=== PATIENT | female | born 1975 | race Caucasian/White ===

== ENCOUNTER 2023-09-10 12:18 | Day surgery (SDC) | payer BC, OTHER ==
[2023-09-06 13:50] LABS: BASOPHILS # (AUTO) 0.1 X10'3 (0-0.2); BASOPHILS % (AUTO) 0.7 % (0-1); EOSINOPHILS # (AUTO) 0.1 X10'3 (0-0.9); EOSINOPHILS % (AUTO) 1.5 % (0-6); HEMATOCRIT 40.3 % (35.0-45.0); HEMOGLOBIN 13.6 g/dl (12.0-16.0); LYMPHOCYTES # (AUTO) 2.6 X10'3 (1.1-4.8); LYMPHOCYTES % (AUTO) 33.4 % (21-51); MEAN CORPUSCULAR HEMOGLOBIN 31.9 PG (27.0-31.0); MEAN CORPUSCULAR HGB CONC 33.8 g/dL (33.0-36.5); MEAN CORPUSCULAR VOLUME 94.4 FL (78-98); MEAN PLATELET VOLUME 8.7 FL (7.4-10.4); MONOCYTES # (AUTO) 0.8 X10'3 (0-0.9); MONOCYTES % (AUTO) 9.9 % (2-12); NEUTROPHILS # (AUTO) 4.2 X10'3 (1.8-7.7); NEUTROPHILS % (AUTO) 54.5 % (42-75); PLATELET COUNT 253 X10'3 (140-440); RED BLOOD COUNT 4.26 X10'6 (4.20-5.60); RED CELL DISTRIBUTION WIDTH 13.1 % (11.5-14.5); WHITE BLOOD COUNT 7.7 X10'3 (4.5-11.0)
[2023-09-06 14:02] LABS: APTT 24 SECONDS (22-32); PROTHROMBIN TIME 10.7 SECONDS (9.0-12.0)
[2023-09-06 14:06] LABS: ANION GAP 7 (8-16); BLOOD UREA NITROGEN 12 MG/DL (7-18); BUN/CREATININE RATIO 14.8 (10.0-20.0); CALCIUM 8.8 MG/DL (8.5-10.1); CHLORIDE 104 MMOL/L (99-107); CHOL/HDL RATIO 3.3 (0.00-4.99); CHOLESTEROL 181 MG/DL (0-200); CREATININE 0.81 MG/DL (0.40-0.90); GLUCOSE 80 MG/DL (70-104); HDL CHOLESTEROL 55 MG/DL (35-60); LDL CHOLESTEROL 109 MG/DL (50-100); POTASSIUM 4.1 MMOL/L (3.5-5.1); SODIUM 139 MMOL/L (135-145); TOTAL CARBON DIOXIDE 27.9 MMOL/L (24-32); TRIGLYCERIDES 90 MG/DL (20-135); eGFR 75 ML/MIN
[2023-09-10] VITALS (9 sets, daily range): BP systolic 109–131; BP diastolic 68–93; PULSE 64–75; RESP 9–21; TEMP 98.1; O2SAT 96–98
[~2023-09-10] VITALS: Ht 170.2 cm; Wt 94.8 kg
[2023-09-10] MEDS: diphenhydrAMINE 25mg capsule PO PRN (13:35)
[2023-09-10] MEDS: LORazepam 0.5 MG tablet PO PRN (13:35)
[2023-09-10] MEDS: normal saline 1,000 ML IV SCH (13:36)
[2023-09-10] MEDS ORDERED: fentaNYL/PF 50MCG/1 ML 2ML syringe ONE (14:55)
[2023-09-10] MEDS ORDERED: iohexol 350 MG/ML 50ML vial IV ONE (14:55)
[2023-09-10] MEDS ORDERED: LIDOcaine 1% 30ml preserv. free vial ONE (14:55)
[2023-09-10] MEDS ORDERED: midazolam 1 mg/ML 2ml injection ONE ×2 (14:55→15:49)
[2023-09-10] MEDS ORDERED: iohexol 350MG/ML 100ml bottle IV ONE (14:56)
[2023-09-10] MEDS ORDERED: CHOL10008 PO (15:22)
[2023-09-10] MEDS ORDERED: PROG200C37 PO (15:22)
[2023-09-10] MEDS ORDERED: VITA-268 PO (15:22)
[2023-09-10] MEDS ORDERED: PROG100C11 PO (15:22)
[2023-09-10] MEDS ORDERED: verapamil 2.5 mg/ml inj IV ONE (15:28)
[2023-09-10] MEDS ORDERED: heparin 1,000unit/ml 10ml vial 10 ML ONE (15:28)
[2023-09-10] MEDS ORDERED: nitroGLYCERIN 500mcg/5mL D5W 5 ML IV ONE (15:28)
[2023-09-10] MEDS ORDERED: proCHLORperazine 10 MG/2 ml inj IV PRN (16:15)
[2023-09-10] MEDS ORDERED: ondansetron/PF 4mg/2ml inj IV PRN (16:15)
[2023-09-10] MEDS ORDERED: HYDROcodone/acetaminophen 5mg/325mg tablet PO PRN (16:15)
[2023-09-10] MEDS ORDERED: OXAZEpam 15mg capsule PO PRN (16:15)
[2023-09-10] MEDS ORDERED: HYDROcodone/acetaminophen 10/325mg tab PO PRN (16:15)
== END 2023-09-10 18:00 | disposition home or self-care (01) ==
LOC: SSTAY O 12:18
PROVIDERS: ATTEND Student in an Organized Health Care Education/Training Program
DX: I71.20 Thoracic aortic aneurysm, without rupture, unspecified (principal); E78.00 Pure hypercholesterolemia, unspecified; Z79.899 Other long term (current) drug therapy
CPT/HCPCS: 36415; 80048; 80061; 85025; 85610; 85730; 93005; 93458; 93567; 99152; J1644; J2250; J3010; J3490; J7030; Q0163; Q9967; 99153; A6258; C1725; C1894

== ENCOUNTER 2023-11-07 12:00 | Inpatient (IN) | payer BC, OTHER ==
[2023-11-01 13:55] LABS: BILIRUBIN,URINE NEGATIVE (Neg); CLARITY,URINE SLIGHTLY CLOUDY (Clear); COLOR,URINE YELLOW (Yellow); GLUCOSE, URINE NEGATIVE (Neg); KETONES,URINE NEGATIVE (Neg); LEUKOCYTE ESTERASE ,URINE NEGATIVE (Neg); NITRITES, URINE NEGATIVE (Neg); OCCULT BLOOD,URINE NEGATIVE (Neg); PROTEIN,URINE NEGATIVE (Neg); UROBILINOGEN,URINE 0.2 E.U/dL (0.2-1.0)
[2023-11-01 13:59] LABS: BASOPHILS % (AUTO) 0.7 % (0-1); EOSINOPHILS # (AUTO) 0.1 X10'3 (0-0.9); EOSINOPHILS % (AUTO) 2.2 % (0-6); LYMPHOCYTES # (AUTO) 2.2 X10'3 (1.1-4.8); LYMPHOCYTES % (AUTO) 32.5 % (21-51); MEAN CORPUSCULAR HEMOGLOBIN 32.3 PG (27.0-31.0); MEAN CORPUSCULAR HGB CONC 34.2 g/dL (33.0-36.5); MEAN CORPUSCULAR VOLUME 94.4 FL (78-98); MEAN PLATELET VOLUME 8.1 FL (7.4-10.4); MONOCYTES # (AUTO) 0.6 X10'3 (0-0.9); MONOCYTES % (AUTO) 8.7 % (2-12); NEUTROPHILS # (AUTO) 3.7 X10'3 (1.8-7.7); NEUTROPHILS % (AUTO) 55.9 % (42-75); PRE OP HEMATOCRIT 40.6 % (35.0-45.0); PRE OP HEMOGLOBIN 13.9 g/dL (12.0-16.0); PRE OP PLATELET COUNT 299 X10'3 (140-440); PRE OP WHITE BLOOD COUNT 6.6 10'3 (4.8-10.8); RED CELL DISTRIBUTION WIDTH 13.2 % (11.5-14.5)
[2023-11-01 14:02] LABS: HEMOGLOBIN A1C 5.1 % (4.5-6.2)
[2023-11-01 14:04] LABS: PRE OP PROTIME 10.6 SECONDS (9.0-12.0)
[2023-11-01 14:05] LABS: ALBUMIN/GLOBULIN RATIO 1.3 (1.1-1.5); ALKALINE PHOSPHATASE 49 IU/L (46-116); BLOOD UREA NITROGEN 15 MG/DL (7-18); BUN/CREATININE RATIO 18.5 (10.0-20.0); CHLORIDE 104 MMOL/L (99-107); CREATININE 0.81 MG/DL (0.40-0.90); PRE OP ALT 23 U/L (30-65); PRE OP ANION GAP 8 (8-16); PRE OP AST 26 U/L (10-37); PRE OP BILIRUB, TOTAL 0.4 MG/DL (0.0-1.0); PRE OP GLUCOSE 113 MG/DL (70-104); PRE OP SODIUM 140 MMOL/L (135-145); TOTAL CARBON DIOXIDE 28.2 MMOL/L (24-32); TOTAL PROTEIN 7.1 G/DL (6.4-8.2); eGFR 75 ML/MIN
[2023-11-01 14:13] LABS: PRE OP POTASSIUM 3.9 MMOL/L (3.4-5.1)
[2023-11-01 15:04] LABS: UA COLLECTION TYPE CLN CATCH MIDSTREAM
[2023-11-01 15:06] LABS: BACTERIA,URINE FEW /HPF (Neg); RBC,URINE 0-2 /HPF (0-2); SQUAMOUS EPITHELIAL CELL,UR FEW /LPF (FEW); WBC,URINE 0-4 /HPF (0-4)
[2023-11-04 09:10] LABS: ABG BASE EXCESS -2.5 mmol/L (-2.0-2.0); ABG OXYGEN SATURATION 96.4 % (92-98.5); ABG PCO2 (T) 29.1 mmHg (32.0-45.0); ABG PH (T) 7.456 (7.350-7.450); ALLEN'S TEST POSITIVE; FCOHb 0.3 % (0.5-1.5); FHHb 3.6 % (0.0-5.0); FMetHb 0.2 % (0.0-1.5); FO2Hb 95.9 % (94-97); MODE ROOM AIR; TOTAL HEMOGLOBIN 14.3 G/dl (12.0-16.0)
[~2023-11-07] VITALS: Ht 170.2 cm; Wt 104.7 kg
[~2023-11-07 12:00] MED LIST: BERBERINE PO; PROG100C11 PO; THYROID SUPPORT PO; VITA-268 PO; amiodarone 50MG/ML inj IV ONE
[2023-11-08] MEDS ORDERED: VITAMIN D PO (13:26)
[2023-11-08] MEDS ORDERED: [UNRECOGNIZED DRUG - OTHER] PO (13:26)
[2023-11-11] VITALS (22 sets, daily range): BP systolic 105–156; BP diastolic 54–95; PULSE 72–95; RESP 14–21; TEMP 98.8; O2SAT 79–100
[2023-11-11] MEDS ORDERED: dextrose 50%-water 50ml dispensing syringe IV PRN ×2 (05:30→12:20)
[2023-11-11] MEDS ORDERED: Insulin Reg/NS 100units/100mL 100 ML IV SCH ×2 (05:30→12:20)
[2023-11-11] MEDS ORDERED: insulin glargine (Lantus) pen - multi-dose SQ PRN ×2 (05:30→12:20)
[2023-11-11] MEDS: cefazolin 2gm/D5W 100mL 100 ML IV ONE (05:30)
[2023-11-11] MEDS: famotidine 20mg tablet PO ONE (06:37)
[2023-11-11] MEDS: mupirocin 2% nasal ointment 1gm UD NS ONE (06:37)
[2023-11-11] MEDS: metoprolol tartrate 12.5mg (1/2 tablet) PO ONE (06:38)
[2023-11-11] MEDS: vancomycin 1,500 MG in NS 300ml IV soln IV ONE (06:38)
[2023-11-11] MEDS: ringers solution, lacted 1,000 ML IV SCH (06:39)
[2023-11-11] MEDS ORDERED: MIDAZolam 1 MG/ML 5ML VIAL ONE ×2 (07:53→14:22)
[2023-11-11] MEDS ORDERED: SUfentanil 50mcg/ml 1ml amp IV ONE (07:53)
[2023-11-11] MEDS: LORazepam 2 mg/ml vial IV ONE (08:15)
[2023-11-11] MEDS ORDERED: sevoflurane 250ml liquid IH ONE ×2 (08:18→14:06)
[2023-11-11 09:30] LABS: ABG BASE EXCESS -2.6 mmol/L (-2.0-2.0); ABG HCO3 21.4 mmol/L (22.0-26.0); ABG OXYGEN SATURATION 98.8 % (92-98.5); ABG PCO2 34.3 mmHg (35.0-48.0); ABG PH 7.412 (7.350-7.450); ABG PO2 296.5 mmHg (75.0-100.0); CL (ABG) 107 mmol/L (99-107); FCOHb 0.2 % (0.5-1.5); FHHb 1.2 % (0.0-5.0); FMetHb 0.5 % (0.0-1.5); FO2Hb 98.1 % (94-97); GLUCOSE (ABG) 122 mg/dl (70-104); IONIZED CA (ABG) 1.16 mmol/L (1.10-1.30); TOTAL HEMOGLOBIN 12.3 G/dl (12.0-16.0)
[2023-11-11] MEDS: ceFAZolin 1000mg inj ONE ×2 (09:41→15:07)
[2023-11-11] MEDS: vancomycin 1,000mg inj ONE ×2 (09:42→15:08)
[2023-11-11] MEDS: epiNEPHrine 1 mg/ml inj ONE ×2 (09:42→15:08)
[2023-11-11 09:43] LABS: ACT @ 1.70 U 230 SEC (193-297); ACT @ 2.84 U 313 SEC (260-420); BASELINE ACT 108 SEC (101-148); PATIENT WEIGHT 95.0k KG
[2023-11-11 11:29] LABS: ABG BASE EXCESS -2.2 mmol/L (-2.0-2.0); ABG OXYGEN SATURATION 98.9 % (92-98.5); ABG PCO2 47.8 mmHg (35.0-48.0); ABG PH 7.318 (7.350-7.450); ABG PO2 287.4 mmHg (75.0-100.0); CL (ABG) 100 mmol/L (99-107); FCOHb 0.3 % (0.5-1.5); FHHb 1.1 % (0.0-5.0); FMetHb 0.3 % (0.0-1.5); FO2Hb 98.3 % (94-97); GLUCOSE (ABG) 246 mg/dl (70-104); IONIZED CA (ABG) 1.45 mmol/L (1.10-1.30); K (ABG) 3.5 mmol/L (3.5-5.1)
[2023-11-11 12:05] LABS: ABG BASE EXCESS -4.1 mmol/L (-2.0-2.0); ABG HCO3 21.3 mmol/L (22.0-26.0); ABG OXYGEN SATURATION 69.4 % (92-98.5); ABG PH 7.344 (7.350-7.450); CL (ABG) 104 mmol/L (99-107); FCOHb 0.3 % (0.5-1.5); FHHb 30.5 % (0.0-5.0); FO2Hb 69.2 % (94-97); GLUCOSE (ABG) 174 mg/dl (70-104); IONIZED CA (ABG) 1.16 mmol/L (1.10-1.30); TOTAL HEMOGLOBIN 9.3 G/dl (12.0-16.0)
[2023-11-11 12:08] LABS: ACTIVATED CLOTTING TIME 116 SEC (101-148)
[2023-11-11] MEDS ORDERED: Neutra Phos packet PO PRN (12:20)
[2023-11-11] MEDS ORDERED: bisacodyl 10mg suppository rectal RC PRN (12:20)
[2023-11-11] MEDS ORDERED: potassium Cl 40MEQ/1/2NS 520ml 520 ML IV PRN (12:20)
[2023-11-11] MEDS ORDERED: potassium Cl 40MEQ/270ML bag 250 ML IV PRN (12:20)
[2023-11-11] MEDS ORDERED: potassium CL 10mEq/100ml bag 100 ML IV PRN (12:20)
[2023-11-11] MEDS ORDERED: mineral oil 133ml enema RC PRN (12:20)
[2023-11-11] MEDS ORDERED: sodium phosphate inj. 30 MMOL in dextrose 5%-water 250 ML IV PRN (12:20)
[2023-11-11] MEDS: sodium chloride 0.45% 1,000 ML IV SCH (12:20)
[2023-11-11] MEDS ORDERED: sodium phosphate inj. 15 MMOL in dextrose 5%-water 250 ML IV PRN (12:20)
[2023-11-11] MEDS ORDERED: potassium Cl 20 mEq SR tablet PO PRN (12:20)
[2023-11-11] MEDS ORDERED: nitroGLYCERIN-Tridil 50MG/D5W 250 ML IV PRN (12:20)
[2023-11-11] MEDS ORDERED: rocuronium 10mg/ml inj IV ONE ×3 (12:40)
[2023-11-11] MEDS ORDERED: propofol inj 20 ML IV ONE ×2 (12:40)
[2023-11-11] MEDS: gabapentin 300mg capsule PO SCH (13:00)
--- NOTE | 2023-11-11 13:10 | NUR ---
Received to room 2013, accompanied by Levy Brandt Dr. Anesthesia and surgical crew. 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 Chest tubes to suction at 20 cm. Day cath to gravity drainage. Dressings are dry and intact. See assessment record. All vasoactive drugs are infusing via central line.
--- NOTE | 2023-11-11 13:15 | NUR ---
1304 Patient went into Vtach, Dr. Meeks bedside, patient received 4 shocks, stable rhythm obtained. new orders amio bouls, followed by protocol polly 4gm mag IV now 1306 patient went into vtach, 1 shock given, stable rhythm obtained. 1311 patient went into vtach, 1 shock given, stable rhythm obtained. 1356 patient went into vtach, 2 shocks given , stable rhythm obtained, Dr Meeks called, Levy Yeager bedside patient going back to OR
[2023-11-11 13:17] LABS: BASOPHILS % (AUTO) 0.2 % (0-1); EOSINOPHILS # (AUTO) 0.1 X10'3 (0-0.9); EOSINOPHILS % (AUTO) 0.4 % (0-6); HEMATOCRIT 31.7 % (35.0-45.0); HEMOGLOBIN 10.7 g/dl (12.0-16.0); LYMPHOCYTES # (AUTO) 1.9 X10'3 (1.1-4.8); LYMPHOCYTES % (AUTO) 10.8 % (21-51); MEAN CORPUSCULAR HEMOGLOBIN 32.1 PG (27.0-31.0); MEAN CORPUSCULAR HGB CONC 33.8 g/dL (33.0-36.5); MEAN CORPUSCULAR VOLUME 95.1 FL (78-98); MEAN PLATELET VOLUME 8.5 FL (7.4-10.4); MONOCYTES # (AUTO) 0.9 X10'3 (0-0.9); MONOCYTES % (AUTO) 4.9 % (2-12); NEUTROPHILS # (AUTO) 14.8 X10'3 (1.8-7.7); NEUTROPHILS % (AUTO) 83.7 % (42-75); PLATELET COUNT 111 X10'3 (140-440); RED BLOOD COUNT 3.33 X10'6 (4.20-5.60); RED CELL DISTRIBUTION WIDTH 12.9 % (11.5-14.5); WHITE BLOOD COUNT 17.6 X10'3 (4.5-11.0)
[2023-11-11 13:28] LABS: ABG BASE EXCESS -0.6 mmol/L (-2.0-2.0); ABG OXYGEN SATURATION 99.4 % (92-98.5); ABG PH (T) 7.394 (7.350-7.450); ABG PO2 (T) 213.1 mmHg (75.0-100.0); FCOHb 0.2 % (0.5-1.5); FHHb 0.6 % (0.0-5.0); FMetHb 0.3 % (0.0-1.5); FO2Hb 98.9 % (94-97); MODE VENT - SIMV; PEEP 5 cm H2O; RESPIRATORY RATE 14 b/min; TIDAL VOLUME 500 mL; TOTAL HEMOGLOBIN 11.4 G/dl (12.0-16.0)
[2023-11-11 13:31] LABS: APTT 29 SECONDS (22-32); INR 1.3 INR; PROTHROMBIN TIME 13.7 SECONDS (9.0-12.0)
[2023-11-11] MEDS: Insulin Reg/NS 100units/100mL 100 ML IV SCH (13:34)
[2023-11-11] MEDS: amiodarone/D5 360MG/200ML BAG 200 ML IV SCH (13:35)
[2023-11-11] MEDS: albumin (Human) 5% 250ml 250 ML IV PRN (13:38)
[2023-11-11] MEDS: DOBUTamine-DoBUTrex 500mg/D5W 250 ML IV SCH (13:38)
[2023-11-11] MEDS: niCARDipine-NS 40mg/200ml IVPB 200 ML IV PRN (13:39)
[2023-11-11 14:05] LABS: ALANINE AMINOTRANSFERASE 13 U/L (12-78); ALBUMIN 2.5 G/DL (3.4-5.0); ALBUMIN/GLOBULIN RATIO 1.4 (1.1-1.5); ALKALINE PHOSPHATASE 21 IU/L (46-116); ANION GAP 6 (8-16); ASPARTATE AMINO TRANSFERASE 36 U/L (10-37); BILIRUBIN,TOTAL 0.8 MG/DL (0.1-1.0); BLOOD UREA NITROGEN 12 MG/DL (7-18); BUN/CREATININE RATIO 15.8 (10.0-20.0); CALCIUM 8.7 MG/DL (8.5-10.1); CHLORIDE 113 MMOL/L (99-107); CREATININE 0.76 MG/DL (0.40-0.90); GLUCOSE 109 MG/DL (70-104); MAGNESIUM 2.2 MG/DL (1.5-2.4); PHOSPHORUS 3.5 MG/DL (2.3-4.5); POTASSIUM 3.7 MMOL/L (3.5-5.1); SODIUM 144 MMOL/L (135-145); TOTAL CARBON DIOXIDE 25.4 MMOL/L (24-32); TOTAL PROTEIN 4.3 G/DL (6.4-8.2); eCRCL 86 ML/MIN; eGFR 81 ML/MIN
[2023-11-11] MEDS ORDERED: fentaNYL /PF 50mcg/ml 5ml ampule ONE (14:40)
[2023-11-11 14:41] LABS: ABG BASE EXCESS -4.5 mmol/L (-2.0-2.0); ABG HCO3 19.8 mmol/L (22.0-26.0); ABG OXYGEN SATURATION 97.5 % (92-98.5); ABG PH 7.384 (7.350-7.450); ABG PO2 109.3 mmHg (75.0-100.0); CL (ABG) 108 mmol/L (99-107); FCOHb 0.3 % (0.5-1.5); FHHb 2.5 % (0.0-5.0); FMetHb 0.3 % (0.0-1.5); FO2Hb 96.9 % (94-97); GLUCOSE (ABG) 74 mg/dl (70-104); K (ABG) 3.2 mmol/L (3.5-5.1); TOTAL HEMOGLOBIN 11.6 G/dl (12.0-16.0)
[2023-11-11] MEDS ORDERED: ceFAZolin 1000mg inj ONE ×2 (14:44)
[2023-11-11] MEDS: magnesium sulf-water 4G/100mL 100 ML IV PRN (15:07)
[2023-11-11 15:18] LABS: ABG BASE EXCESS -1.9 mmol/L (-2.0-2.0); ABG PCO2 39.3 mmHg (35.0-48.0); ABG PH 7.385 (7.350-7.450); CL (ABG) 106 mmol/L (99-107); FCOHb 0.3 % (0.5-1.5); FMetHb 0.3 % (0.0-1.5); FO2Hb 98.4 % (94-97); GLUCOSE (ABG) 145 mg/dl (70-104); IONIZED CA (ABG) 1.03 mmol/L (1.10-1.30); K (ABG) 4.1 mmol/L (3.5-5.1); TOTAL HEMOGLOBIN 8.5 G/dl (12.0-16.0)
[2023-11-11] MEDS: ceFAZolin/D5W- 1GM premix 50 ML IV SCH (16:00)
[2023-11-11 16:05] LABS: ABG BASE EXCESS -10.6 mmol/L (-2.0-3.0); ABG HCO3 16.9 mmol/L (21.0-28.0); ABG PCO2 46.6 mmHg (32.0-45.0); CL (ABG) 84 mmol/L (99-107); FCOHb 0.3 % (0.5-1.5); FHHb 27.6 % (0.0-5.0); FMetHb 0.6 % (0.0-1.5); FO2Hb 71.5 % (94.0-98.0); IONIZED CA (ABG) 0.75 mmol/L (1.10-1.30)
[2023-11-11 16:09] LABS: ABG BASE EXCESS -2.1 mmol/L (-2.0-3.0); ABG OXYGEN SATURATION 99.2 % (94.0-98.0); ABG PCO2 34.4 mmHg (32.0-45.0); ABG PH 7.424 (7.350-7.450); CL (ABG) 110 mmol/L (98-107); FHHb 0.8 % (0.0-5.0); FMetHb 0.2 % (0.0-1.5); GLUCOSE (ABG) 146 mg/dl (70-104); K (ABG) 3.5 mmol/L (3.40-4.50); TOTAL HEMOGLOBIN 7.4 G/dl (12.0-16.0)
[2023-11-11 16:11] LABS: ACTIVATED CLOTTING TIME 248 SEC (101-148)
--- NOTE | 2023-11-11 16:51 | NUR ---
Nutrition consult: Pt is s/p AVR and NEYMAR today 11/10 per EMR. Pt may benefit from high protein nutrition education once medically appropriate. Will continue to monitor and make recommendations as appropriate. Addendum: 11/11/23 at [address] Amended: Links added.
[2023-11-11 17:10] LABS: ABG BASE EXCESS -0.9 mmol/L (-2.0-3.0); ABG HCO3 24.7 mmol/L (21.0-28.0); ABG OXYGEN SATURATION 99.3 % (94.0-98.0); ABG PCO2 (T) 41.9 mmHg (32.0-45.0); ABG PH (T) 7.381 (7.350-7.450); ABG PO2 (T) 267.5 mmHg (83.0-108.0); FCOHb 0.3 % (0.5-1.5); FHHb 0.7 % (0.0-5.0); FMetHb 0.3 % (0.0-1.5); FO2Hb 98.7 % (94.0-98.0); MODE VENT - SIMV; PATIENT TEMPERATURE 35.4; PEEP 5 cm H2O; RESPIRATORY RATE 14 b/min; TIDAL VOLUME 500 mL; TOTAL HEMOGLOBIN 9.6 G/dl (12.0-16.0)
[2023-11-11 17:18] LABS: BASOPHILS % (AUTO) 0.1 % (0-1); EOSINOPHILS % (AUTO) 0.2 % (0-6); HEMATOCRIT 25.5 % (35.0-45.0); HEMOGLOBIN 8.6 g/dl (12.0-16.0); LYMPHOCYTES # (AUTO) 1.4 X10'3 (1.1-4.8); LYMPHOCYTES % (AUTO) 7.4 % (21-51); MEAN CORPUSCULAR HEMOGLOBIN 31.7 PG (27.0-31.0); MEAN CORPUSCULAR HGB CONC 33.8 g/dL (33.0-36.5); MEAN CORPUSCULAR VOLUME 93.9 FL (78-98); MEAN PLATELET VOLUME 8.2 FL (7.4-10.4); MONOCYTES # (AUTO) 1.2 X10'3 (0-0.9); MONOCYTES % (AUTO) 6.4 % (2-12); NEUTROPHILS # (AUTO) 15.8 X10'3 (1.8-7.7); NEUTROPHILS % (AUTO) 85.9 % (42-75); PLATELET COUNT 113 X10'3 (140-440); RED BLOOD COUNT 2.71 X10'6 (4.20-5.60); RED CELL DISTRIBUTION WIDTH 12.8 % (11.5-14.5); WHITE BLOOD COUNT 18.4 X10'3 (4.5-11.0)
[2023-11-11 17:33] LABS: APTT 34 SECONDS (22-32); FIBRINOGEN 105 MG/DL (177-424); INR 1.4 INR; PROTHROMBIN TIME 14.7 SECONDS (9.0-12.0)
[2023-11-11] MEDS: [UNRECOGNIZED DRUG - OTHER] IV SCH (17:40)
[2023-11-11] MEDS: NS IV SCH (17:40)
[2023-11-11] MEDS: morphine 4 MG/ML inj SYRINge IV PRN (17:49)
--- NOTE | 2023-11-11 18:00 | NUR ---
Problems reprioritized. Patient report given, questions answered & plan of care reviewed with sarwat Kendrick.
[2023-11-11 18:09] LABS: ALBUMIN 2.8 G/DL (3.4-5.0); ANION GAP 10 (8-16); BLOOD UREA NITROGEN 14 MG/DL (7-18); BUN/CREATININE RATIO 17.1 (10.0-20.0); CALCIUM 8.9 MG/DL (8.5-10.1); CHLORIDE 112 MMOL/L (99-107); CREATININE 0.82 MG/DL (0.40-0.90); GLUCOSE 146 MG/DL (70-104); MAGNESIUM 2.7 MG/DL (1.5-2.4); PHOSPHORUS 4.3 MG/DL (2.3-4.5); POTASSIUM 3.8 MMOL/L (3.5-5.1); SODIUM 146 MMOL/L (135-145); TOTAL CARBON DIOXIDE 24.1 MMOL/L (24-32); eCRCL 74 ML/MIN; eGFR 74 ML/MIN
--- NOTE | 2023-11-11 18:18 | NUR ---
Patient in room CICU 2013. I have received report from Bri Signh RN and had the opportunity to ask questions and assume patient care.
[2023-11-11] MEDS: potassium Cl 20mEq/100mL bag 100 ML IV PRN (18:34)
[2023-11-11] MEDS: mupirocin 2% nasal ointment 1gm UD NS SCH (20:07)
[2023-11-11] MEDS: sennosides/docusate sodium tablet PO SCH (20:07)
[2023-11-11] MEDS: atorvastatin 10mg tablet PO SCH (20:07)
[2023-11-11] MEDS: vancomycin/NS 1 GM ADD-VANTAGE 250 ML IV SCH (20:07)
[2023-11-11] MEDS: progesterone, micronized 100mg capsule PO SCH (20:26)
--- NOTE | 2023-11-11 20:33 | NUR ---
MD Meeks at bedside rounding on patient. MD updated on current patient status, including run of SVT on monitor. Updated that patient otherwise stable, wakes up agitated but follows commands. Currently on FIO2 40% and saturating 98%. MD states okay to wean to extubate patient tonight. Will follow MD orders, will continue to monitor patient closely.
[2023-11-11 22:54] LABS: ABG BASE EXCESS -1.3 mmol/L (-2.0-3.0); ABG HCO3 22.9 mmol/L (21.0-28.0); ABG OXYGEN SATURATION 96.2 % (94.0-98.0); ABG PCO2 (T) 37.5 mmHg (32.0-45.0); ABG PH (T) 7.407 (7.350-7.450); FCOHb 0.1 % (0.5-1.5); FHHb 3.8 % (0.0-5.0); FMetHb 0.3 % (0.0-1.5); FO2Hb 95.8 % (94.0-98.0); MODE VENT - CPAP; PATIENT TEMPERATURE 37.6; PEEP 5 cm H2O; TOTAL HEMOGLOBIN 10.6 G/dl (12.0-16.0)
--- NOTE | 2023-11-11 23:05 | NUR ---
PT passed weaning parameters performed by RT. PT extubated and tolerated well, currently 97% on 4L NC. Patient sleepy, but wakes up and follows commands. Will continue to monitor patient closely.
[2023-11-11 23:12] LABS: BASOPHILS % (AUTO) 0 % (0-1); EOSINOPHILS % (AUTO) 0 % (0-6); HEMATOCRIT 27.7 % (35.0-45.0); HEMOGLOBIN 9.6 g/dl (12.0-16.0); LYMPHOCYTES # (AUTO) 0.6 X10'3 (1.1-4.8); LYMPHOCYTES % (AUTO) 4.1 % (21-51); MEAN CORPUSCULAR HEMOGLOBIN 32.5 PG (27.0-31.0); MEAN CORPUSCULAR HGB CONC 34.8 g/dL (33.0-36.5); MEAN CORPUSCULAR VOLUME 93.6 FL (78-98); MEAN PLATELET VOLUME 8.6 FL (7.4-10.4); MONOCYTES # (AUTO) 0.7 X10'3 (0-0.9); MONOCYTES % (AUTO) 5.2 % (2-12); NEUTROPHILS # (AUTO) 12.9 X10'3 (1.8-7.7); NEUTROPHILS % (AUTO) 90.7 % (42-75); PLATELET COUNT 137 X10'3 (140-440); RED BLOOD COUNT 2.96 X10'6 (4.20-5.60); RED CELL DISTRIBUTION WIDTH 13.3 % (11.5-14.5); WHITE BLOOD COUNT 14.3 X10'3 (4.5-11.0)
[2023-11-11 23:38] LABS: ALANINE AMINOTRANSFERASE 25 U/L (12-78); ALBUMIN 3.4 G/DL (3.4-5.0); ALBUMIN/GLOBULIN RATIO 2.1 (1.1-1.5); ALKALINE PHOSPHATASE 18 IU/L (46-116); ANION GAP 7 (8-16); ASPARTATE AMINO TRANSFERASE 121 U/L (10-37); BILIRUBIN,TOTAL 1.3 MG/DL (0.1-1.0); BLOOD UREA NITROGEN 12 MG/DL (7-18); CALCIUM 8.3 MG/DL (8.5-10.1); CHLORIDE 113 MMOL/L (99-107); CREATININE 0.75 MG/DL (0.40-0.90); GLUCOSE 148 MG/DL (70-104); MAGNESIUM 2.1 MG/DL (1.5-2.4); PHOSPHORUS 3.8 MG/DL (2.3-4.5); POTASSIUM 4.5 MMOL/L (3.5-5.1); SODIUM 144 MMOL/L (135-145); TOTAL CARBON DIOXIDE 24.5 MMOL/L (24-32); eCRCL 81 ML/MIN; eGFR 82 ML/MIN
[2023-11-12] VITALS (26 sets, daily range): BP systolic 90–123; BP diastolic 46–75; PULSE 79–99; RESP 13–24; O2SAT 93–99
[2023-11-12] MEDS: magnesium sulf-water 2g/50mL 50 ML IV PRN (00:31)
[2023-11-12] MEDS: morphine 2 MG/ML inj. syringe IV PRN (00:59)
[2023-11-12 02:53] LABS: BASOPHILS % (AUTO) 0.2 % (0-1); EOSINOPHILS % (AUTO) 0 % (0-6); HEMATOCRIT 26.3 % (35.0-45.0); LYMPHOCYTES # (AUTO) 0.6 X10'3 (1.1-4.8); MEAN CORPUSCULAR HEMOGLOBIN 32.1 PG (27.0-31.0); MEAN CORPUSCULAR HGB CONC 34.3 g/dL (33.0-36.5); MEAN CORPUSCULAR VOLUME 93.5 FL (78-98); MEAN PLATELET VOLUME 8.3 FL (7.4-10.4); MONOCYTES # (AUTO) 0.8 X10'3 (0-0.9); MONOCYTES % (AUTO) 5.2 % (2-12); NEUTROPHILS # (AUTO) 13.9 X10'3 (1.8-7.7); NEUTROPHILS % (AUTO) 90.6 % (42-75); PLATELET COUNT 132 X10'3 (140-440); RED BLOOD COUNT 2.81 X10'6 (4.20-5.60); RED CELL DISTRIBUTION WIDTH 13.3 % (11.5-14.5); WHITE BLOOD COUNT 15.4 X10'3 (4.5-11.0)
[2023-11-12 03:10] LABS: ALANINE AMINOTRANSFERASE 33 U/L (12-78); ALBUMIN 3.2 G/DL (3.4-5.0); ALKALINE PHOSPHATASE 19 IU/L (46-116); ANION GAP 7 (8-16); ASPARTATE AMINO TRANSFERASE 128 U/L (10-37); BILIRUBIN,TOTAL 0.8 MG/DL (0.1-1.0); BLOOD UREA NITROGEN 12 MG/DL (7-18); BUN/CREATININE RATIO 16.4 (10.0-20.0); CALCIUM 7.8 MG/DL (8.5-10.1); CHLORIDE 111 MMOL/L (99-107); CREATININE 0.73 MG/DL (0.40-0.90); GLUCOSE 146 MG/DL (70-104); MAGNESIUM 2.3 MG/DL (1.5-2.4); PHOSPHORUS 4.4 MG/DL (2.3-4.5); POTASSIUM 4.2 MMOL/L (3.5-5.1); SODIUM 143 MMOL/L (135-145); TOTAL CARBON DIOXIDE 24.8 MMOL/L (24-32); TOTAL PROTEIN 4.8 G/DL (6.4-8.2); eCRCL 83 ML/MIN; eGFR 84 ML/MIN
--- NOTE | 2023-11-12 03:19 | NUR ---
MD Meeks called and notified regarding patient's run of 6 beat run of vtach followed by 15 beat run of vtach. Informed MD that BP was stable and that patient was otherwise asymptomatic. New orders received. Will follow MD orders, will continue to monitor patient closely.
[2023-11-12] MEDS: CALCIUM GLUC 1gm/50ml NACL,iso 50 ML IV ONE (03:35)
--- NOTE | 2023-11-12 06:12 | NUR ---
Problems reprioritized. Patient report given, questions answered & plan of care reviewed with Angel Luis MAC.
--- NOTE | 2023-11-12 06:33 | NUR ---
Patient in room CICU 2013. I have received report from Juvenal MAC and had the opportunity to ask questions and assume patient care.
[2023-11-12 07:10] LABS: ACT @ 1.70 U 310 SEC (193-297); ACT @ 2.84 U 509 SEC (260-420); BASELINE ACT 126 SEC (101-148); PATIENT WEIGHT 90.0k KG
[2023-11-12] MEDS: vitamin B comp w/Vit. C tab 1 TAB TABLET PO SCH (07:51)
[2023-11-12] MEDS: aspirin 81mg tab.chew PO SCH (07:51)
[2023-11-12] MEDS: metoprolol tartrate 12.5mg (1/2 tablet) PO SCH (07:52)
[2023-11-12 08:08] LABS: ABG PCO2 30.3 mmHg (32.0-45.0)
[2023-11-12 08:09] LABS: ABG BASE EXCESS -1.9 mmol/L (-2.0-3.0); ABG HCO3 22.4 mmol/L (21.0-28.0); ABG PO2 > 601.0 mmHg (83.0-108.0); FCOHb 0.3 % (0.5-1.5); FMetHb 0.3 % (0.0-1.5); FO2Hb 98.7 % (94.0-98.0); TOTAL HEMOGLOBIN 8.1 G/dl (12.0-16.0)
[2023-11-12 08:10] LABS: ABG OXYGEN SATURATION 99.3 % (94.0-98.0); CL (ABG) 104 mmol/L (98-107); FHHb 0.7 % (0.0-5.0); IONIZED CA (ABG) 1.01 mmol/L (1.15-1.33); K (ABG) 4.8 mmol/L (3.40-4.50)
[2023-11-12 08:15] LABS: GLUCOSE (ABG) 183 mg/dl (65-95)
[2023-11-12 08:17] LABS: ABG PCO2 43.9 mmHg (32.0-45.0); ABG PH 7.278 (7.350-7.450)
[2023-11-12 08:18] LABS: ABG BASE EXCESS -6.3 mmol/L (-2.0-3.0); ABG HCO3 20.1 mmol/L (21.0-28.0); ABG OXYGEN SATURATION 99.5 % (94.0-98.0); ABG PO2 > 601.0 mmHg (83.0-108.0); FCOHb 0.3 % (0.5-1.5); FHHb 0.5 % (0.0-5.0); FMetHb 0.3 % (0.0-1.5); FO2Hb 98.9 % (94.0-98.0); TOTAL HEMOGLOBIN 8.7 G/dl (12.0-16.0)
[2023-11-12 08:19] LABS: CL (ABG) 103 mmol/L (98-107); GLUCOSE (ABG) 272 mg/dl (65-95); IONIZED CA (ABG) 1.06 mmol/L (1.15-1.33); K (ABG) 4.3 mmol/L (3.40-4.50)
[2023-11-12 08:20] LABS: ABG PCO2 48.6 mmHg (32.0-45.0); ABG PH 7.304 (7.350-7.450)
[2023-11-12 08:21] LABS: ABG BASE EXCESS -2.6 mmol/L (-2.0-3.0); ABG HCO3 23.6 mmol/L (21.0-28.0); ABG OXYGEN SATURATION 99.5 % (94.0-98.0); ABG PO2 > 601.0 mmHg (83.0-108.0); FCOHb 0.2 % (0.5-1.5); FHHb 0.5 % (0.0-5.0); FMetHb 0.1 % (0.0-1.5); FO2Hb 99.2 % (94.0-98.0); TOTAL HEMOGLOBIN 7.1 G/dl (12.0-16.0)
[2023-11-12 08:22] LABS: CL (ABG) 103 mmol/L (98-107); GLUCOSE (ABG) 126 mg/dl (65-95)
[2023-11-12 08:50] LABS: ABG PO2 37.6 mmHg (75.0-100.0)
[2023-11-12 08:51] LABS: ABG PH 7.178 (7.350-7.450); ABG PO2 45.4 mmHg (83.0-108.0); TOTAL HEMOGLOBIN 6.3 G/dl (12.0-16.0)
[2023-11-12 08:52] LABS: ABG OXYGEN SATURATION 72.1 % (94.0-98.0); K (ABG) 2.8 mmol/L (3.5-5.1)
[2023-11-12 08:53] LABS: ABG PO2 416.3 mmHg (83.0-108.0)
--- NOTE | 2023-11-12 13:03 | NUR ---
Art Line Fem art line removed, pressure held for 15 min, site remains soft no s/s hematoma. Pt states pain is minimal. Positioned to comfort on back. PT here to eval and put pt up in chair.
--- NOTE | 2023-11-12 14:40 | NUR ---
PT eval PT saw pt but MAP was less than 60. Pt was dangled and tolerated well even w/low MAP. Pt was put back in bed. SO at bedside. HOB up for lunch and pt fed self w/out difficulty. Productive strong cough.
--- NOTE | 2023-11-12 18:18 | NUR ---
Patient in room CICU 2013. I have received report from Angel Luis MAC and had the opportunity to ask questions and assume patient care.
--- NOTE | 2023-11-12 18:30 | NUR ---
Patient in room CICU 2013. I have received report from Juvenal MAC and had the opportunity to ask questions and assume patient care.
[2023-11-12] MEDS: HYDROcodone/acetaminophen 10/325mg tab PO PRN (20:08)
[2023-11-13] VITALS (21 sets, daily range): BP systolic 96–134; BP diastolic 53–77; PULSE 71–83; RESP 10–24; O2SAT 90–99
--- NOTE | 2023-11-13 02:48 | NUR ---
Patient oxygen saturation suddenly dropped to 85% while asleep with good pleth. Patient woken up to deep breath and cough. Lung sounds sound normal. Patient sat up higher in bed and cannula O2 changed from 4L to 6L NC. O2 now 94%. Patient states she is not feeling SOB and is AOX4. Will continue to monitor patient closely.
[2023-11-13 02:59] LABS: BASOPHILS % (AUTO) 0 % (0-1); EOSINOPHILS % (AUTO) 0 % (0-6); HEMATOCRIT 25.2 % (35.0-45.0); HEMOGLOBIN 8.3 g/dl (12.0-16.0); LYMPHOCYTES # (AUTO) 1.4 X10'3 (1.1-4.8); LYMPHOCYTES % (AUTO) 4.8 % (21-51); MEAN CORPUSCULAR HEMOGLOBIN 31.3 PG (27.0-31.0); MEAN CORPUSCULAR HGB CONC 32.8 g/dL (33.0-36.5); MEAN CORPUSCULAR VOLUME 95.4 FL (78-98); MEAN PLATELET VOLUME 9.5 FL (7.4-10.4); MONOCYTES # (AUTO) 2.2 X10'3 (0-0.9); MONOCYTES % (AUTO) 7.9 % (2-12); NEUTROPHILS # (AUTO) 24.7 X10'3 (1.8-7.7); NEUTROPHILS % (AUTO) 87.3 % (42-75); PLATELET COUNT 122 X10'3 (140-440); RED BLOOD COUNT 2.64 X10'6 (4.20-5.60); RED CELL DISTRIBUTION WIDTH 13.9 % (11.5-14.5)
[2023-11-13 03:09] LABS: ALBUMIN 3.1 G/DL (3.4-5.0); ANION GAP 5 (8-16); BLOOD UREA NITROGEN 19 MG/DL (7-18); BUN/CREATININE RATIO 22.4 (10.0-20.0); CALCIUM 8.3 MG/DL (8.5-10.1); CHLORIDE 105 MMOL/L (99-107); CREATININE 0.85 MG/DL (0.40-0.90); GLUCOSE 174 MG/DL (70-104); PHOSPHORUS 3.5 MG/DL (2.3-4.5); POTASSIUM 5.4 MMOL/L (3.5-5.1); SODIUM 136 MMOL/L (135-145); TOTAL CARBON DIOXIDE 25.8 MMOL/L (24-32); WHITE BLOOD COUNT 28.3 X10'3 (4.5-11.0); eCRCL 71 ML/MIN; eGFR 71 ML/MIN
[2023-11-13 03:55] LABS: TOTAL CELLS COUNTED 100
[2023-11-13 03:56] LABS: PLATELET ESTIMATE DECREASED
--- NOTE | 2023-11-13 06:04 | NUR ---
Problems reprioritized. Patient report given, questions answered & plan of care reviewed with BUBBA Hein.
--- NOTE | 2023-11-13 06:30 | NUR ---
Patient in room CICU 2013. I have received report from Juvenal MAC and had the opportunity to ask questions and assume patient care.
[2023-11-13] MEDS: pantoprazole 40mg Tablet.DR PO SCH (07:55)
[2023-11-13] MEDS: amiodarone 200mg tablet PO SCH (08:30)
[2023-11-13] MEDS: furosemide 40mg/4ml inj IV ONE (08:30)
--- NOTE | 2023-11-13 10:00 | NUR ---
Update Pt in chair since 714 x 2 RNs with mod assist after pain meds. Tolerated well and VS stable. SO to see pt at 0800. PT complained of being "confused" after pain meds and in chair. Wanted to sleep. Encouraged to stay up in chair. About 0930 Dr. Meeks & PA to see pt. Plan reviewed. Aware that pt had [address] drainage after being in chair for about 15 min. Pt states confusion is better now, after some time. Parents to see also.
[2023-11-13] MEDS ORDERED: potassium Cl 20mEq/100mL bag 100 ML IV PRN (13:35)
[2023-11-13] MEDS ORDERED: potassium Cl 40MEQ/1/2NS 520ml 520 ML IV PRN (13:35)
[2023-11-13] MEDS ORDERED: magnesium sulf-water 2g/50mL 50 ML IV PRN (13:35)
[2023-11-13] MEDS ORDERED: potassium CL 10mEq/100ml bag 100 ML IV PRN (13:35)
[2023-11-13] MEDS ORDERED: potassium Cl 20 mEq SR tablet PO PRN (13:35)
--- NOTE | 2023-11-13 16:00 | NUR ---
Back to bed PT here to ambulate pt, walked about 150 feet and then back to a chair. Ate lunch, visited w/SO and parents. ~1500 requested to bed for a nap. Back to bed x 2 RN w/min assist. Positioned to comfort and pt fell to sleep promptly.
--- NOTE | 2023-11-13 17:02 | NUR ---
Nutrition consult: Per EMR pt POD #2 s/p aortic root replacement and CABG x1. Unable to see pt today d/t short staffing. Will f/u and provide nutrition therapy education as able. Addendum: 11/13/23 at [address] Amended: Links added.
--- NOTE | 2023-11-13 17:15 | NUR ---
OOB to chair Pt up to chair w/min assist. States much better getting up now. SO at bedside.
[2023-11-13] MEDS: magnesium Cl slow-release 64mg tablet PO SCH (20:36)
[2023-11-13] MEDS: ondansetron/PF 4mg/2ml inj IV PRN (21:55)
[2023-11-13] MEDS: acetaminophen 325mg tablet PO PRN (22:19)
[2023-11-13] MEDS: metoclopramide 5 mg/ml inj IV PRN (22:32)
[2023-11-14] VITALS (16 sets, daily range): BP systolic 91–125; BP diastolic 50–69; PULSE 68–77; RESP 8–24; TEMP 97.3–98.1; O2SAT 92–99
[2023-11-14 04:24] LABS: BASOPHILS % (AUTO) 0.1 % (0-1); EOSINOPHILS % (AUTO) 0.1 % (0-6); HEMATOCRIT 22.6 % (35.0-45.0); HEMOGLOBIN 7.6 g/dl (12.0-16.0); LYMPHOCYTES % (AUTO) 9.9 % (21-51); MEAN CORPUSCULAR HGB CONC 33.5 g/dL (33.0-36.5); MEAN CORPUSCULAR VOLUME 95.5 FL (78-98); MEAN PLATELET VOLUME 9.8 FL (7.4-10.4); MONOCYTES # (AUTO) 1.6 X10'3 (0-0.9); MONOCYTES % (AUTO) 7.9 % (2-12); NEUTROPHILS # (AUTO) 16.8 X10'3 (1.8-7.7); PLATELET COUNT 117 X10'3 (140-440); RED BLOOD COUNT 2.37 X10'6 (4.20-5.60); RED CELL DISTRIBUTION WIDTH 13.2 % (11.5-14.5); WHITE BLOOD COUNT 20.5 X10'3 (4.5-11.0)
[2023-11-14 04:37] LABS: ALBUMIN 2.9 G/DL (3.4-5.0); ANION GAP 4 (8-16); BLOOD UREA NITROGEN 14 MG/DL (7-18); BUN/CREATININE RATIO 20.6 (10.0-20.0); CALCIUM 8.1 MG/DL (8.5-10.1); CHLORIDE 105 MMOL/L (99-107); CREATININE 0.68 MG/DL (0.40-0.90); GLUCOSE 123 MG/DL (70-104); POTASSIUM 4.2 MMOL/L (3.5-5.1); SODIUM 138 MMOL/L (135-145); TOTAL CARBON DIOXIDE 29.1 MMOL/L (24-32); eCRCL 89 ML/MIN; eGFR > 90 ML/MIN
[2023-11-14 05:05] LABS: MAGNESIUM 1.9 MG/DL (1.5-2.4); PHOSPHORUS 2.4 MG/DL (2.3-4.5)
[2023-11-14] MEDS: magnesium sulf-water 4G/100mL 100 ML IV PRN (05:15)
[2023-11-14] MEDS: potassium Cl 40MEQ/270ML bag 250 ML IV PRN (05:16)
--- NOTE | 2023-11-14 06:18 | NUR ---
Patient in room CICU 2013. I have received report from Tatiana MAC and had the opportunity to ask questions and assume patient care.
--- NOTE | 2023-11-14 06:23 | NUR ---
Problems reprioritized. Patient report given, questions answered & plan of care reviewed with BUBBA Hein.
--- NOTE | 2023-11-14 07:26 | NUR ---
PA PA to see pt. Chest tubes and pacer wires removed. Pt stated easier to breath with the tubes out.
[2023-11-14] MEDS: furosemide 40mg/4ml inj IV ONE (08:17)
--- NOTE | 2023-11-14 08:34 | NUR ---
MD visit Dr. Meeks to see pt. Plan of care reviewed & orders received. Pt is up in chair with SO at bedside. Pt needing min assist with getting to chair.
--- NOTE | 2023-11-14 10:07 | NUR ---
Ambulation Pt requested pain med. Pt ambulated on RA x 150'. VS stable with ambulation. Sats to 92% on room air. SO with pt for walk. States feeling much better. Wanted to go back to bed. Bed available on PCU. IV to be attempted prior to transfer. Good UO response to Lasix
--- NOTE | 2023-11-14 10:15 | NUR ---
Patient in room CICU 2013. I have received report from Angel Luis MAC and had the opportunity to ask questions and assume patient care.
--- NOTE | 2023-11-14 10:25 | NUR ---
Problems reprioritized. Patient report given, questions answered & plan of care reviewed with Cori MAC on PCU.
--- NOTE | 2023-11-14 11:09 | NUR ---
Transferred Pt transferred after CL removed, hemostasis achieved and dressed with gauze dressing and clear opsite dressing. Tele unit attached, belongings gathered by Miya HERNANDEZ, and pt moved to 3010 via W/C with O2 at 2 L. Pt able to get self out of bed and W/C without assistance. RR up with exertion but tolerated well. Positioned in bed to comfort and Soraya RN at bedside with tech. Introduced pt & family to PCU staff.
--- NOTE | 2023-11-14 15:00 | NUR ---
Pt ambulated 150 ft., with oxygen(2L), pt tolerated it well and became SOB a few times. Ambulated pt back in room and sitting in chair. Pt's oxygen was increased to 3L temporarily.
--- NOTE | 2023-11-14 16:09 | NUR ---
F/u: Attempted visit with pt at bedside however pt working with RN then on a walk. Will f/u at another time. Addendum: 11/14/23 at [address] Amended: Links added.
[2023-11-14] MEDS: magnesium hydroxide 30ml (MOM) UD suspension PO PRN (17:25)
--- NOTE | 2023-11-14 18:30 | NUR ---
Problems reprioritized. Patient report given, questions answered & plan of care reviewed with Aly RN.
[2023-11-15] VITALS (9 sets, daily range): BP systolic 99–116; BP diastolic 56–72; PULSE 72–76; RESP 15–19; TEMP 97.7–98.2; O2SAT 93–95
[2023-11-15] MEDS: acetaminophen 325mg tablet PO PRN (02:13)
--- NOTE | 2023-11-15 06:35 | NUR ---
Patient in room PCU 3010. I have received report from Aly MAC and had the opportunity to ask questions and assume patient care.
--- NOTE | 2023-11-15 06:37 | NUR ---
Day D/C'd; Problems reprioritized. Patient report given, questions answered & plan of care reviewed with BUBBA Lira.
[2023-11-15 07:45] LABS: EOSINOPHILS # (AUTO) 0.1 X10'3 (0-0.9); HEMOGLOBIN 7.7 g/dl (12.0-16.0); MONOCYTES # (AUTO) 1.5 X10'3 (0-0.9); NEUTROPHILS % (AUTO) 78.1 % (42-75)
[2023-11-15 07:47] LABS: BASOPHILS # (AUTO) 0.1 X10'3 (0-0.2); BASOPHILS % (AUTO) 0.3 % (0-1); EOSINOPHILS % (AUTO) 0.6 % (0-6); LYMPHOCYTES % (AUTO) 11.9 % (21-51); MEAN CORPUSCULAR HGB CONC 33.6 g/dL (33.0-36.5); MEAN CORPUSCULAR VOLUME 95.2 FL (78-98); MEAN PLATELET VOLUME 9.2 FL (7.4-10.4); MONOCYTES % (AUTO) 9.1 % (2-12); PLATELET COUNT 151 X10'3 (140-440); RED BLOOD COUNT 2.42 X10'6 (4.20-5.60); WHITE BLOOD COUNT 16.7 X10'3 (4.5-11.0)
[2023-11-15 08:19] LABS: ANION GAP 7 (8-16); BLOOD UREA NITROGEN 9 MG/DL (7-18); BUN/CREATININE RATIO 14.3 (10.0-20.0); CALCIUM 8.3 MG/DL (8.5-10.1); CHLORIDE 103 MMOL/L (99-107); CREATININE 0.63 MG/DL (0.40-0.90); GLUCOSE 112 MG/DL (70-104); POTASSIUM 4.1 MMOL/L (3.5-5.1); SODIUM 139 MMOL/L (135-145); TOTAL CARBON DIOXIDE 29.2 MMOL/L (24-32); eCRCL 104 ML/MIN; eGFR > 90 ML/MIN
[2023-11-15 08:41] LABS: NUCLEATED RED BLOOD CELLS 1 /100WBC (0-0); TOTAL CELLS COUNTED 100
[2023-11-15] MEDS: potassium Cl 20 mEq SR tablet PO PRN (08:43)
[2023-11-15 08:44] LABS: PLATELET ESTIMATE NORMAL
[2023-11-15] MEDS ORDERED: HYDR-3972 PO (09:56)
[2023-11-15] MEDS ORDERED: ATOR10TA PO (09:56)
[2023-11-15] MEDS ORDERED: AMI200T PO ×2 (09:56→10:01)
[2023-11-15] MEDS ORDERED: LOP12.5T PO ×2 (09:56→10:01)
[2023-11-15] MEDS ORDERED: ASPI81TA53 PO (10:02)
[2023-11-15] MEDS: furosemide 20 MG/2 ML vial IV ONE (11:06)
--- NOTE | 2023-11-15 15:08 | NUR ---
called Levy Yeager, to verify if pt could shower. Levy stated to remove all dressing and pt can shower.
[2023-11-15] MEDS ORDERED: ondansetron 4mg rapidly disintigrating tab PO PRN (15:30)
--- NOTE | 2023-11-15 18:24 | NUR ---
Problems reprioritized. Patient report given, questions answered & plan of care reviewed with Mary MAC.
[2023-11-16 02:00] VITALS: BP 110/66; PULSE 64; RESP 14; TEMP 98.4; O2SAT 94
[2023-11-16] MEDS: HYDROcodone/acetaminophen 10/325mg tab PO PRN (04:18)
[2023-11-16 06:00] VITALS: BP 103/62; PULSE 63; RESP 15; TEMP 97; O2SAT 95
--- NOTE | 2023-11-16 06:34 | NUR ---
Patient in room PCU 3010. I have received report from Erin MAC and had the opportunity to ask questions and assume patient care.
[2023-11-16 06:59] LABS: BASOPHILS % (AUTO) 0.3 % (0-1); EOSINOPHILS # (AUTO) 0.2 X10'3 (0-0.9); EOSINOPHILS % (AUTO) 1.6 % (0-6); HEMOGLOBIN 7.1 g/dl (12.0-16.0); LYMPHOCYTES # (AUTO) 1.9 X10'3 (1.1-4.8); LYMPHOCYTES % (AUTO) 14.2 % (21-51); MEAN CORPUSCULAR HEMOGLOBIN 31.8 PG (27.0-31.0); MEAN CORPUSCULAR HGB CONC 33.1 g/dL (33.0-36.5); MEAN CORPUSCULAR VOLUME 96.1 FL (78-98); MEAN PLATELET VOLUME 8.8 FL (7.4-10.4); MONOCYTES # (AUTO) 1.5 X10'3 (0-0.9); MONOCYTES % (AUTO) 10.8 % (2-12); NEUTROPHILS # (AUTO) 9.9 X10'3 (1.8-7.7); NEUTROPHILS % (AUTO) 73.1 % (42-75); PLATELET COUNT 154 X10'3 (140-440); RED BLOOD COUNT 2.25 X10'6 (4.20-5.60); RED CELL DISTRIBUTION WIDTH 12.8 % (11.5-14.5); WHITE BLOOD COUNT 13.5 X10'3 (4.5-11.0)
[2023-11-16 07:11] LABS: ALBUMIN 2.6 G/DL (3.4-5.0); ANION GAP 7 (8-16); BLOOD UREA NITROGEN 13 MG/DL (7-18); BUN/CREATININE RATIO 21.7 (10.0-20.0); CALCIUM 8.3 MG/DL (8.5-10.1); CHLORIDE 102 MMOL/L (99-107); GLUCOSE 101 MG/DL (70-104); HEMATOCRIT 21.6 % (35.0-45.0); POTASSIUM 4.4 MMOL/L (3.5-5.1); SODIUM 139 MMOL/L (135-145); TOTAL CARBON DIOXIDE 29.8 MMOL/L (24-32); eCRCL 109 ML/MIN; eGFR > 90 ML/MIN
[2023-11-16 08:00] VITALS: RESP 15; O2SAT 93
[2023-11-16 11:00] VITALS: BP 100/53; PULSE 69; RESP 15; TEMP 98.1; O2SAT 93
[2023-11-16] MEDS: furosemide 40mg/4ml inj IV ONE (11:00)
[2023-11-16 12:33] VITALS: RESP 15
--- NOTE | 2023-11-16 12:50 | NUR ---
Pt was discharged by Dr. Meeks. Pt is stable, removed IV and tele box. Discussed discharge instructions and new medications. Pt verbalized understanding, all questions and concerns addressed. Pt was wheeled out to lobby and driven home , [place].
--- NOTE | 2023-11-16 13:06 | NUR ---
F/u: Per EMR pt discharged prior to RD being available for bedside visit. Written post CABG nutrition therapy education with [employer] coupons and RD contact information mailed to patient's address found in EMR. Addendum: 11/16/23 at [address] Amended: Links added.
== END 2023-11-16 13:05 | disposition home or self-care (01) | DRG 236 ==
LOC: PAS IN 11-11 05:36 → CICU 2S 11-11 13:06 → PCU 3S 11-14 10:56
PROVIDERS: ADMIT Thoracic Surgery (Cardiothoracic Vascular Surgery); ATTEND Thoracic Surgery (Cardiothoracic Vascular Surgery)
PROC: 021009W Bypass Coronary Artery, One Artery from Aorta with Autologous Venous Tissue, Open Approach (ICD-10-PCS; 2023-11-11)
PROC: 30233R1 Transfusion of Nonautologous Platelets into Peripheral Vein, Percutaneous Approach (ICD-10-PCS; 2023-11-11)
PROC: 02UW0JZ Supplement Thoracic Aorta, Descending with Synthetic Substitute, Open Approach (ICD-10-PCS; 2023-11-11)
PROC: 06BP4ZZ Excision of Right Saphenous Vein, Percutaneous Endoscopic Approach (ICD-10-PCS; 2023-11-11)
PROC: B24BZZ4 Ultrasonography of Heart with Aorta, Transesophageal (ICD-10-PCS; 2023-11-11)
PROC: 02UX0JZ Supplement Thoracic Aorta, Ascending/Arch with Synthetic Substitute, Open Approach (ICD-10-PCS; 2023-11-11)
PROC: 5A1221Z Performance of Cardiac Output, Continuous (ICD-10-PCS; principal; 2023-11-11 08:18)
DX: I71.21 Aneurysm of the ascending aorta, without rupture (principal); I47.10 Supraventricular tachycardia, unspecified; Q25.43 Congenital aneurysm of aorta; I49.9 Cardiac arrhythmia, unspecified; D69.6 Thrombocytopenia, unspecified
CPT/HCPCS: 93306; 93312; 93325; Z7506; Z7508; 36415; 36430; 36600; 71045; 71046; 80048; 80053; 81001; 82330; 82435; 82803; 82947; 82948; 83036; 83735; 84100; 84132; 84295; 85007; 85018; 85025; 85347; 85384; 85610; 85730; 86885; 86900; 86901; 86920; 87070; 87081; 93005; 93880; 93970; 94002; 94010; 94640; 94664; 94760; 97110; 97116; 97162; 97530; 97535; A4615; A4618; A6258; A6449; A7000; A7048; C1751; C1768; G0378; J0171; J0282; J0610; J0690; J1250; J1644; J1815; J1940; J2060; J2150; J2250; J2270; J2405; J2704; J2720; J2765; J2919; J3010; J3370; J3475; J3480; J3490; J7030; J7040; J7050; J7120; P9035; P9045; P9047

== ENCOUNTER 2023-11-19 06:38 | Emergency (ER) | payer BC ==
[~2023-11-19] VITALS: Ht 170.2 cm; Wt 104.9 kg
[~2023-11-19 06:38] MED LIST changes: +AMI200T PO; +ASPI81TA53 PO; +HYDR-3972 PO; +LOP12.5T PO; +VITAMIN D PO; +[UNRECOGNIZED DRUG - OTHER] PO; -amiodarone 50MG/ML inj IV ONE
[2023-11-19 06:44] VITALS: TEMP 97.4
[2023-11-19 08:30] LABS: BASOPHILS # (AUTO) 0.1 X10'3 (0-0.2); BASOPHILS % (AUTO) 0.4 % (0-1); EOSINOPHILS # (AUTO) 0.4 X10'3 (0-0.9); EOSINOPHILS % (AUTO) 2.7 % (0-6); HEMATOCRIT 22.8 % (35.0-45.0); HEMOGLOBIN 7.6 g/dl (12.0-16.0); LYMPHOCYTES # (AUTO) 1.5 X10'3 (1.1-4.8); LYMPHOCYTES % (AUTO) 11.8 % (21-51); MEAN CORPUSCULAR HEMOGLOBIN 32.1 PG (27.0-31.0); MEAN CORPUSCULAR HGB CONC 33.3 g/dL (33.0-36.5); MEAN CORPUSCULAR VOLUME 96.5 FL (78-98); MEAN PLATELET VOLUME 8.1 FL (7.4-10.4); MONOCYTES # (AUTO) 1.7 X10'3 (0-0.9); NEUTROPHILS # (AUTO) 9.3 X10'3 (1.8-7.7); NEUTROPHILS % (AUTO) 72.1 % (42-75); PLATELET COUNT 316 X10'3 (140-440); RED BLOOD COUNT 2.36 X10'6 (4.20-5.60); RED CELL DISTRIBUTION WIDTH 13.6 % (11.5-14.5)
[2023-11-19 08:40] LABS: ALBUMIN 2.8 G/DL (3.4-5.0); ANION GAP 7 (8-16); BLOOD UREA NITROGEN 8 MG/DL (7-18); BUN/CREATININE RATIO 11.8 (10.0-20.0); CALCIUM 8.7 MG/DL (8.5-10.1); CHLORIDE 104 MMOL/L (99-107); CREATINE KINASE 63 U/L (26-192); CREATININE 0.68 MG/DL (0.40-0.90); GLUCOSE 105 MG/DL (70-104); POTASSIUM 4.2 MMOL/L (3.5-5.1); SODIUM 138 MMOL/L (135-145); TOTAL CARBON DIOXIDE 26.7 MMOL/L (24-32); eCRCL 96 ML/MIN; eGFR > 90 ML/MIN
[2023-11-19 09:32] LABS: NUCLEATED RED BLOOD CELLS 2 /100WBC (0-0); PLATELET ESTIMATE NORMAL; TOTAL CELLS COUNTED 100
[2023-11-19 09:33] LABS: ANISOCYTOSIS FEW; BURR CELLS FEW; POIKILOCYTOSIS FEW; POLYCHROMASIA FEW
[2023-11-19] MEDS ORDERED: APIX5TAB3 PO (10:43)
[2023-11-19 11:16] VITALS: BP 127/77; PULSE 64; RESP 18; O2SAT 95
== END 2023-11-19 11:18 | disposition home or self-care (01) ==
LOC: ER 06:39
DX: M25.511 Pain in right shoulder (principal); I82.890 Acute embolism and thrombosis of other specified veins; Z79.899 Other long term (current) drug therapy; Z79.82 Long term (current) use of aspirin; Z98.61 Coronary angioplasty status
CPT/HCPCS: 36415; 80048; 82550; 84145; 85007; 85025; 93931; 93971; 99284